=== PATIENT | male | born 1950 | race Caucasian/White ===

== ENCOUNTER 2019-02-11 13:24 | Outpatient (CLI) | payer MEDICARE, OTHER ==
--- NOTE | 2019-02-11 13:42 | RAD ---
EXAM: Chest Two Views 02/11/2019 1:38 PM HISTORY: Right lower lobe lung mass COMPARISON: None. FINDINGS: Heart: Normal in size and contour. Pulmonary vessels: Normal. Costophrenic angles: Clear. Lungs: There is opacity within the right lower lobe. There is a moderate size right-sided pleural eff usion. The left lung is clear. Pneumothorax: None. Osseous structures:Intact. Additional findings: None. IMPRESSION: Moderate right pleural effusion and right basilar opacity. The opacity in the right lung base is susp icious for atelectasis; however, component pneumonia is not excluded. CT evaluation with contrast would be more helpful in evaluating for right lung malignancy.
== END 2019-02-11 13:25 | disposition home or self-care (01) ==
LOC: RAD 13:24
PROVIDERS: ATTEND Thoracic Surgery (Cardiothoracic Vascular Surgery)
DX: R91.8 Other nonspecific abnormal finding of lung field (principal); J90 Pleural effusion, not elsewhere classified
CPT/HCPCS: 71046

== ENCOUNTER 2019-02-12 08:29 | Day surgery (SDC) | payer MEDICARE, OTHER ==
--- NOTE | 2019-02-12 11:27 | CT ---
CT OF THE THORAX WITHOUT IV CONTRAST INDICATION: Pleural effusion COMPARISON: Chest radiograph dated February 11, 2019 FINDINGS: The lack of IV contrast limits evaluation for malignancy. LUNGS: There is air bronchograms seen within portions of collapsed right lower lobe much of which is likely related to subsegmental volume loss; however, component of pneumonia in the right lower lobe is not excluded. Pleural spaces: There is a moderate-sized loculated right pleural effusion with loculated appearing f luid present within the right major fissure. There is hyperdensity seen within the largest collection in the right lower hemithorax possibly related proteinaceous material or small amount of h emorrhage. Lymph nodes: No pathologically enlarged lymph nodes are seen within the mediastinum. Hilar lymphadeno jose angel is difficult to evaluate on a noncontrast exam. Heart and great vessels: There are coronary artery and thoracic aortic calcifications. Upper abdomen: Visualized aspects of the upper abdomen appear within normal limits. Osseous structures: No acute osseous abnormality. IMPRESSION: 1. Moderate size complicated right pleural effusion with loculated fluid extending into the right larissa or fissure. There is also hyperdensity within the largest portion of the collection the right lower hemithorax possibly related to proteinaceous material or small amount of hemorrhage. Recommend correl ation for any recent procedure to the right hemithorax. Recommend correlation for any symptoms and signs of empyema. 2. Small amount of air bronchograms within the right lower lobe is likely related to subsegmental vol ume loss; however, component of pneumonia cannot be excluded.
--- NOTE | 2019-02-12 11:45 | CON ---
DATE OF CONSULTATION: HISTORY OF PRESENT ILLNESS: Efren Henderson is a 68-year-old male. I was consulted for a pleural effusion. He went to [facility] within the last few weeks wanting to quit smoking. A CT of his chest was ordered. A nodule was found. It is unclear to me how big the nodule was. He subsequently was set up for CT-guided biopsy of this nodule. He had a parenchymal hemorrhage and also pneumothorax. He ended up having a large chest tube placed on the right. This has been removed. He followed up with his chest surgeon and was noted to have a pleural effusion yesterday, so I was consulted. Past medical history is remarkable for feeling poorly and going to a doctor who did an EKG, which showed tombstone abnormalities. He was transferred into [facility] in [place] from [place], [place] where eventually underwent cardiac catheterization, which did not identify any significant coronary artery disease. PAST MEDICAL HISTORY: Remarkable for having hernia repair, disk herniation, left wrist fracture repair, tonsillectomy, and anterior cervical diskectomy and fusion at C5-C6 with Dr. Ruiz in 2016. FAMILY HISTORY: Positive for lung cancer. REVIEW OF SYSTEMS: Otherwise negative. PHYSICAL EXAMINATION: VITAL SIGNS: Blood pressure 120/80, pulse 80, respiratory rate is 18. HEENT: Pupils are equal. Sclerae are anicteric. NECK: Supple. No lymphadenopathy. LUNGS: Left lung is clear. Right lung is dull to percussion with decreased breath sounds at the right base. HEART: Regular rhythm. S1 and S2 are normal. ABDOMEN: Soft. EXTREMITIES: Without clubbing, cyanosis, or edema. DIAGNOSTIC STUDIES: Chest x-ray done yesterday shows a right effusion. IMPRESSION: 1. Right effusion, likely old blood. Recommended attempt at thoracentesis. Risk of bleeding, infection, lung collapse, least likely were explained. He agreed to proceed. 2. Lung mass. I do not have the images from [facility], so I cannot make a comment on this, but he will bring me a disk when he sees me next week in followup of the thoracentesis. Job ID: [id number]
--- NOTE | 2019-02-12 12:32 | OP ---
DATE OF PROCEDURE: 02/12/2019 PROCEDURE PERFORMED: Thoracentesis. DESCRIPTION OF PROCEDURE: Right posterior hemithorax was prepped twice with chlorhexidine at 3 different interspaces. 15 mL of 1% lidocaine was used to anesthetize the 3 interspaces. Multiple attempts using 22-gauge needle to localize fluid were unsuccessful. No air was aspirated. I recommended CT of the chest to better define this abnormality and he will follow up with me Friday. There is no clinical indication of pneumothorax. The CT chest fluid loculated right base plan to discuss with surgeon. Once we review the CT of the original nodule, I will make further recommendations. Job ID: [id number]
== END 2019-02-12 11:15 | disposition home or self-care (01) ==
LOC: SDC 08:29 → EDSTATUS 08:31 → SDC 11:15
PROVIDERS: ATTEND Internal Medicine Critical Care Medicine
PROC: 0BJQ3ZZ Inspection of Pleura, Percutaneous Approach (ICD-10-PCS; principal; 2019-02-12)
PROC: BW24ZZZ Computerized Tomography (CT Scan) of Chest and Abdomen (ICD-10-PCS; 2019-02-12)
DX: J90 Pleural effusion, not elsewhere classified (principal); F17.200 Nicotine dependence, unspecified, uncomplicated
CPT/HCPCS: 71250; J1642

== ENCOUNTER 2019-02-16 14:00 | Inpatient (IN) | payer MEDICARE, OTHER ==
[2019-02-16 17:02] LABS: ALT (SGPT) 49 U/L (8-55); AST (SGOT) 32 U/L (5-34); Albumin 3.5 g/dL (3.4-4.8); Alkaline Phosphatase 137 U/L (40-110); Anion Gap 13 mmol/L (10-20); BUN (Urea Nitrogen) 14 mg/dL (8.4-25.7); Bilirubin, Direct 0.2 mg/dL (0.1-0.3); Bilirubin, Total 0.3 mg/dL (0.2-1.2); Calc. Creatinine Clearance 0 mL/min (70-130); Calcium 8.5 mg/dL (7.8-10.44); Carbon Dioxide 28 mmol/L (23-31); Chloride 102 mmol/L (98-107); Estimated GFR-MDRD 85; Glucose 107 mg/dL (80-115); Potassium 4.8 mmol/L (3.5-5.1); Protein, Total 6.1 g/dL (5.8-8.1); Sodium 138 mmol/L (136-145)
[2019-02-16 17:10] LABS: Hemoglobin 11.4 g/dL (14.0-18.0); Mean Corpuscular HGB CONC 31.8 g/dL (32.0-36.0); Mean Platelet Volume 10.8 fL (7.4-10.4); Platelet Count 191 thou/uL (130-400); RBC Distribution Width 17.1 % (11.5-14.5); Red Blood Cell (RBC) Count 4.07 mill/uL (4.70-6.10); White Blood Cell (WBC) Count 2.2 thou/uL (4.8-10.8)
--- NOTE | 2019-02-17 00:05 | HP ---
CHIEF COMPLAINT: Shortness of breath. HISTORY OF PRESENT ILLNESS: The patient is a 68-year-old smoker, who has only very recently quit. He has been smoking for most of his life and has noticed some increasing dyspnea on exertion of late. He decided to accompany his brother when he had an appointment with a health care analyst for similar problems, which led to an initial evaluation. Pulmonary function testing and screening CT scan were arranged. The patient had mild obstructive disease on his PFTs and screening CT scan showed about 1.5 mm spiculated mass fairly deep within the right lower lobe. On January 27, it was percutaneously biopsied, which was complicated by pulmonary hemorrhage and hemothorax. He initially was hypotensive, but responded to fluid administration he was transfused and a chest tube was placed draining relatively thin blood. He had a fairly good clearance of his fusion and after 5 or 6 days, his chest tube was removed but about a week or so later in followup, chest x-ray showed fairly significant reaccumulation of fluid. He was not febrile and had no productive cough. Attempts at thoracentesis were unsuccessful and a CT scan showed findings consistent with multiloculated clotted hemothorax. The lung mass that had been visible on previous CT scan was obscured by the effusion. The patient has not had any recent unusual pattern of headaches, not had any seizures or focal neurologic deficits. He has chronic low back pain and knee pain, but no new aches or pains in his bones or joints. He has not had any recent weight loss. He has not noticed any new lumps or bumps, popping up anywhere, and no new or changing moles. He has not noticed any jaundice or scleral icterus. PAST MEDICAL HISTORY: Significant for some degenerative disk disease in his low back and he has had previous C5-C6 anterior cervical diskectomy and fusion. He has an ill-defined psychiatric disorder for which he takes Zoloft to "take the edge off." This past summer, he was hospitalized at [facility] in [place] with chest pain and EKG changes. He ruled out for myocardial infarction and had no obstructive coronary disease and an LVEF of around 60% on cardiac catheterization. A presumptive diagnosis of viral bronchitis or pneumonitis was entertained when viral studies came back with parainfluenza virus. During that hospitalization, he was noted to have leukopenia with white counts of 2000 or less. There were no particular abnormalities noted on examination of the peripheral smear. The patient tells me that he has a known history of leukopenia going back at least a few years. HOME MEDICATIONS: 1. Simvastatin 10 mg a day. 2. Sertraline 25 mg a day. 3. Celebrex 200 mg a day. 4. Fish oil 1200 mg a day. 5. Multivitamin. He has recently been started on iron. ALLERGIES: HE DENIES ANY MEDICAL ALLERGIES, BUT REPORTS INSOMNIA WITH WELLBUTRIN. SOCIAL HISTORY: He is about half to one pack a day smoker for many years, but has not smoked in about a month. FAMILY HISTORY: Significant for hypertension and cancer in his father, cancer and coronary disease in his mother. REVIEW OF SYSTEMS: As above. He has no current chest pain. PHYSICAL EXAMINATION: VITAL SIGNS: Heart rate is around 100, blood pressure 131/71, height 6 feet tall, weighs 164 pounds, room air O2 saturations are 96%. He has no scleral icterus or xanthelasma. No JVD or carotid bruits. There is no cervical or supraclavicular lymphadenopathy. He has a mild pectus excavatum deformity. He has diminished breath sounds at the right base with dullness to percussion about a third [address] way up. ABDOMEN: Soft and nontender without organomegaly, masses, or bruits. He has palpable radial pulses. He has no bony deformities or tenderness. No clubbing, cyanosis, or edema. NEUROLOGIC: Grossly nonfocal. CT scanning initially had borderline enlargement of what appeared to represent an azygos node and adjacent pretracheal node that were not appreciable on the CT scan that he had that was part of his post hemorrhage evaluation. It is 1.5 cm irregularly contoured mass and what I think probably represents anterior medial segment of the right lower lobe. He perhaps has some peribronchial adenopathy, but no obvious hilar or mediastinal adenopathy on that. He has no liver or adrenal masses. He does have some coronary calcifications that are appreciable on it. Pulmonary function testing showed forced vital capacity 3.83, which was 78% of predicted, improved to 3.90 or 80% of predicted with bronchodilators. FEV1 was 2.59 L or 71% of predicted and improved to 2.69 or 74% of predicted. His DLCO is 81% of predicted. Core biopsy of his lung mass merely showed benign pulmonary parenchyma with hemorrhage. IMPRESSION AND RECOMMENDATIONS: The patient has no clinical or radiographic evidence to suggest metastatic disease other than perhaps some N1 adenopathy given the recurrence of what appears to be clotted hemothorax that is going to make PET scanning somewhat problematic. It is probably more appropriate just simply to take an approach of screening bronchoscopy. I do not think that he needs surgical staging and go straight to thoracotomy to evacuate the clotted hemothorax. I have cautioned him that while it is my practice to do excisional biopsies, confirm malignancy prior to committing to an anatomic resection such as lobectomy that may not be feasible and may be necessary to do lobectomy as the biopsy. If he appears to have adenopathy in the sump of Borrie, he will need bilobectomy. He wishes to proceed. Job ID: [id number]
[2019-02-18] MEDS ORDERED: Fentanyl 100 MCG/2 ML VIAL ONE ×3 (06:32→13:07)
[2019-02-18] MEDS ORDERED: Midazolam HCl 2 mg/2 ml Vial ONE (06:32)
[2019-02-18] MEDS ORDERED: Ropivacaine HCl/PF 750 ML in Premix Bag 1 BAG NERVE BLCK SCH (07:30)
[2019-02-18] MEDS ORDERED: Ropivacaine 0.2% HCl/PF 20 ML ONE (08:01)
[2019-02-18] MEDS ORDERED: Ropivacaine 0.2% 550 ML 550 ML NERVE BLCK SCH (09:28)
[2019-02-18] MEDS ORDERED: Ondansetron HCl/PF 4 MG/2 ML Vial IVP PRN ×2 (09:53→09:54)
[2019-02-18] MEDS ORDERED: Rocuronium Bromide 50 MG/5 ML VIAL ONE (09:54)
[2019-02-18] MEDS ORDERED: PHENYLEPHRINE-NS 100 MCG/ML 10 ML SYRINGE ONE (10:48)
[2019-02-18] MEDS ORDERED: ePHEDrine/0.9% NaCl/PF SYRINGE 50 mg/10 ml ONE (10:48)
[2019-02-18] MEDS ORDERED: Ondansetron PF 4 MG/2 ML Vial ONE (10:48)
[2019-02-18] MEDS ORDERED: Dexamethasone 20 MG/5 ML VIAL ONE (10:48)
[2019-02-18] MEDS ORDERED: Glycopyrrolate 0.2 MG/ML 5 ML SYRINGE ONE (10:48)
[2019-02-18] MEDS ORDERED: PROPOFOL 200 MG/20 ML VIAL ONE (10:48)
[2019-02-18] MEDS ORDERED: Rocuronium Bromide 10 MG/ML (10ML VIAL) ONE (10:48)
[2019-02-18] MEDS ORDERED: Lidocaine 1% PF 5 ML VIAL ONE (10:48)
[2019-02-18] MEDS ORDERED: Ketorolac Tromethamine 30 MG/ML VIAL ONE ×2 (10:48→16:44)
[2019-02-18] MEDS ORDERED: Ondansetron PF 4 MG/2 ML Vial IVP PRN (12:15)
[2019-02-18] MEDS ORDERED: Morphine Sulfate 100 MG in Dextrose 5% in Water 98 ML IV SCH (12:33)
[2019-02-18] MEDS ORDERED: Naloxone HCl 0.4 mg/ml Vial IV PRN (12:33)
[2019-02-18] MEDS ORDERED: Fentanyl 100 MCG/2 ML VIAL SLOW IVP PRN (12:34)
--- NOTE | 2019-02-18 13:08 | RAD ---
Portable frontal chest radiograph: 02/18/2019 COMPARISON: 02/16/2019 HISTORY: Evaluate chest following thoracotomy FINDINGS: There are 2 right-sided chest tubes in place. There is a third postsurgical drainage cathet er curling over the soft tissues within the lateral inferior right hemithorax. Previously noted prominent pleural and parenchymal opacity within the right lung base has essentially resolved followi ng surgery. There is a small pneumothorax in the right lung apex and a possible small pneumothorax in the right cardiophrenic angle. Small volume subcutaneous gas noted within the right chest wall. Le ft lung appears clear. IMPRESSION: Postoperative changes of the right hemithorax with small apical pneumothorax and possible small pneumothorax in the right costophrenic angle. There are 2 right [address] tubes in place and a third drainage catheter which curls over the soft tissues and lateral inferior right hemithorax as ab ove.
[2019-02-18 14:17] LABS: Mean Corpuscular HGB CONC 32.6 g/dL (32.0-36.0); Mean Corpuscular Hemoglobin 28.5 pg (27.0-31.0); Mean Corpuscular Volume 87.4 fL (78.0-98.0); Mean Platelet Volume 10.7 fL (7.4-10.4); Platelet Count 157 thou/uL (130-400); RBC Distribution Width 16.7 % (11.5-14.5); Red Blood Cell (RBC) Count 2.79 mill/uL (4.70-6.10); White Blood Cell (WBC) Count 2.5 thou/uL (4.8-10.8)
[2019-02-18 14:52] LABS: #Lymphocytes 0.3 thou/uL (1.20-3.40); #Neutrophils 2.1 thou/uL (1.40-6.50); %Basophils 1.1 % (0.0-1.0); %Eosinophils 0.4 % (0.0-10.0); %Lymphocytes 12.1 % (21.0-51.0); %Monocytes 1.3 % (0.0-10.0); %Neutrophils 85.2 % (42.0-75.0)
[2019-02-18 15:01] LABS: Hypochromia SLIGHT = 6-15 cells (100X) (0-5/hpf); MDiff Complete? YES; Platelet Morphology Comment Appears Adequate; Polychromasia SLIGHT = 2-3 cells (100X) (0-2/hpf); Tear Drops SLIGHT = 2-5 cells (100X) (0-1/hpf)
[2019-02-18] MEDS: Acetaminophen 1,000 MG in Premix Bag 1 BAG IVPB SCH ×2 (18:22→20:53)
[2019-02-18] MEDS: Ketorolac Tromethamine 30 MG/ML VIAL IVP SCH (18:23)
[2019-02-18] MEDS: Sodium Chloride 0.9% 1,000 ML IV SCH ×2 (18:41→20:53)
--- NOTE | 2019-02-18 22:16 | OP ---
DATE OF PROCEDURE: 02/18/2019 PROCEDURES PERFORMED: Fiberoptic bronchoscopy, muscle sparing right thoracotomy , evacuation of clotted hemothorax, excisional biopsy of right lower lobe mass, right lower lobectomy, mediastinal lymph node dissection, On-Q PainBuster subpleural catheter placement for a continuous intercostal nerve block x2. ANESTHESIA: General endotracheal anesthesia. INDICATIONS: The patient is a 68-year-old smoker, found to have about a 1.5 cm mass fairly deep within the substance of his right lower lobe on a screening CT scan. The patient had no clinical or radiographic evidence to suggest metastatic disease and had adequate pulmonary reserve. Percutaneous biopsy was complicated by hemothorax that was drained with a chest tube, but his effusion has recurred and he is significantly symptomatic. FINDINGS: About 2300 mL of reddish-brown fluid and about 500 mL of rind and clotted blood in the chest cavity with scattered dense adhesions. There was about a 1.5 or 2 cm firm mass anterior medially in the right lower lobe near the hilum, which by frozen section examination was consistent with a non-small cell carcinoma. Two subcentimeter lymph nodes that were white and very firm were harvested from the subcarinal position. During lymph node dissection, the hilar and peribronchial lymph nodes including the nodes at the sump of Borrie immediately adjacent to the tumor were soft and anthracotic appearing. No endobronchial abnormalities were seen. NARRATIVE REPORT: After informed consent was obtained, the patient was taken to the operating room, placed in supine position on the operating table. After the induction of general anesthesia, the fiberoptic bronchoscope was lubricated and inserted through a swivel device on the endotracheal tube. The judd was sharp. The right mainstem bronchus was intubated and then the right upper lobe was intubated. It was examined to the subsegmental level in each of the 3 segments. No endobronchial abnormalities were appreciated. The scope was then withdrawn back into the mainstem bronchus and advanced into the bronchus intermedius and from there into the middle lobe. The medial and lateral segments were examined to the subsegmental level and then the right lower lobe was examined getting to the subsegmental and then even beyond that in the medial basilar segment. No endobronchial abnormalities were appreciated. The scope was then withdrawn back to the level of the trachea and advanced into the left mainstem bronchus. The upper lobe proper lingula and lower lobe were each examined to at least the segmental bronchial level. The scope was then withdrawn and a bronchial evelin was positioned. The patient was turned into the left lateral decubitus position and his right chest was prepped and draped in sterile fashion. Slightly curvilinear incision paralleling the ribs was made just below the tip of the scapula on the lateral aspect of the chest. The electrocautery was used to carry that dissection through the subcutaneous tissue and to mobilize the latissimus and the serratus. The fifth intercostal space was entered. Brown turbid fluid was evacuated from the chest locally. It was found to be loculated as clotted hemothorax was broken up and scattered, but very dense adhesions of the lung to the chest wall and mediastinum and slightly less dense adhesions to the diaphragm were encountered. Once the fluid clot and rind had been adequately evacuated, the lung was mobilized. Completing lysis of adhesions, the lung was examined. There was no suspicious adenopathy appreciated. A rubbery mass could be felt within the anterior medial aspect of the right lower lobe near the hilum corresponding to the mass seen on the screening CT scan. The inferior pulmonary ligament was lysed in inferior pulmonary ligaments. The ligament lymph nodes were harvested and sent as specimen. Relatively large , but rubbery and benign-appearing lymph nodes were encountered adjacent to the esophagus and these were ultimately sent as a separate specimen as well. The fissures were fairly well developed. The fissure between the middle and lower lobe posteriorly was explored to identify the pulmonary artery at that point. A combination of sharp and blunt dissection was used to develop the plane of Leriche to carry the dissection inferior to the middle lobe and its venous drainage. An endoscopic MARIA G stapling device was used to complete that fissure to facilitate a more thorough examination of the mass in the lower lobe. The venous drainage of the 3 lobes was identified and the hilar reflections of the pleura were lysed with the electrocautery and blunt dissection. It proved feasible. Once the medial aspects of the right lower lobe were freed from their adhesions to the mediastinum, the position of stapler to excise that mass without having to do a formal segmentectomy or to jeopardize any of the pulmonary arterial branches or the inferior vein. Once that mass had been excised, it was sent to pathology. While it was being examined, the arterial structures in the fissure between the upper and lower lobes posteriorly were identified. Lymph nodes that were encountered in the peribronchial position in the development of these fissures were excised and sent for pathologic examination as separate specimens. When the frozen section examination diagnosis of non- small cell carcinoma was returned. Development of the fissures was completed. The middle lobe was still adherent to the upper lobe. The lymph nodes at the sump of Borrie appeared to be soft and anthracotic and as much as was feasible. These nodes were dissected out to be taken with the specimen. A vascular TA stapling device was used to doubly ligate the inferior pulmonary vein and then the vascular stapler and silk suture were used to ligate the interlobar pulmonary artery just beyond the takeoff branches to the middle lobe. A TA 30 stapler was positioned just beyond the origin of the middle lobe bronchus across the lower lobe bronchus and clamped. A test inflation of the right lung showed no restriction of ventilation into the upper and middle lobes. Stapling device was fired and the specimen was amputated and removed from the field. The chest was irrigated and then a 30 cm water Valsalva maneuver was performed with the bronchial stump under irrigation and no evidence of air leak from the stump was identified. The azygos vein was then mobilized. Lymph nodes along the upper lobe bronchus and segmental branches to the upper lobe immediately deep to that were bluntly dissected free and sent as a separate specimen. The pre and right peritracheal spaces were developed by blunt dissection. No gross adenopathy was palpable, but upon visual inspection, some soft anthracotic nodes were identified in the distal right peritracheal and pretracheal positions. These were harvested. The inferior medial aspect of the bronchus intermedius and right mainstem bronchus were then followed into the subcarinal space and a fairly large rubbery lymph node was encountered. Blunt dissection was used to free that, but in the course of mobilizing that 2 small subcentimeter lymph nodes were bluntly dissected free as well and were recovered free in the chest cavity. These two small and one large lymph nodes were sent as subcarinal nodes. The chest was inspected. 36-[place] chest tubes were introduced into the chest through separate incisions positioning them at the apex anteriorly and posteriorly. On-Q system was brought to the field. Two catheters were introduced into the chest and then tunneled deep to the pleura posterior medially, one passing superiorly and one inferiorly from the intercostal incision. 5 mL of 0.5% ropivacaine were bolused into each catheter. These catheters were secured to the skin with suture. The ribs were reapproximated with #1 Vicryl [id number] pericostal sutures. The muscle layers were tacked back in their anatomic position with running #1 Vicryl. A 19-[place] bulb suction drain was placed just superficial to the latissimus in the subcutaneous space and the subcutaneous tissue was reapproximated with running 2-0 Vicryl. The skin was closed with a 3-0 Vicryl subcuticular suture. The wounds were dressed. The RUSH drain was connected to a bulb and the chest tubes to close suction drainage. The On-Q ropivacaine reservoir was attached to the catheters. The patient was awakened and extubated in the operating room and taken to the recovery area in stable condition. Job ID: [id number] MTDD
[2019-02-19] MEDS: Ketorolac Tromethamine 30 MG/ML VIAL IVP SCH ×5 (00:53→23:59)
[2019-02-19 04:49] LABS: #Lymphocytes 0.9 thou/uL (1.20-3.40); #Monocytes 0.1 thou/uL (0.11-0.59); #Neutrophils 2.2 thou/uL (1.40-6.50); %Basophils 0.2 % (0.0-1.0); %Eosinophils 0.1 % (0.0-10.0); %Lymphocytes 28.1 % (21.0-51.0); %Neutrophils 69.6 % (42.0-75.0); Hemoglobin 6.5 g/dL (14.0-18.0); Mean Corpuscular HGB CONC 31.6 g/dL (32.0-36.0); Mean Corpuscular Hemoglobin 28.2 pg (27.0-31.0); Mean Corpuscular Volume 89.1 fL (78.0-98.0); Mean Platelet Volume 10.8 fL (7.4-10.4); Platelet Count 148 thou/uL (130-400); RBC Distribution Width 16.4 % (11.5-14.5); Red Blood Cell (RBC) Count 2.29 mill/uL (4.70-6.10); White Blood Cell (WBC) Count 3.2 thou/uL (4.8-10.8)
[2019-02-19 05:00] LABS: Anion Gap 10 mmol/L (10-20); BUN (Urea Nitrogen) 13 mg/dL (8.4-25.7); Calc. Creatinine Clearance 82 mL/min (70-130); Calcium 7.3 mg/dL (7.8-10.44); Carbon Dioxide 26 mmol/L (23-31); Chloride 105 mmol/L (98-107); Estimated GFR-MDRD Greater than 90; Glucose 133 mg/dL (80-115); Potassium 4.6 mmol/L (3.5-5.1); Sodium 136 mmol/L (136-145)
[2019-02-19] MEDS: Acetaminophen 1,000 MG in Premix Bag 1 BAG IVPB SCH ×2 (05:04→08:05)
[2019-02-19] MEDS: Sodium Chloride 0.9% 1,000 ML IV SCH ×2 (08:08→09:36)
--- NOTE | 2019-02-19 08:51 | RAD ---
CHEST 1 VIEW: INDICATION: Status post thoracotomy. COMPARISON: Prior exam dated 02/18/2019. IMPRESSION: Right-sided thoracostomy tubes are unchanged. There is slight increased right-sided pleural effusion . Right apical pneumothorax is unchanged. There is worsening opacity within the right lower lobe, s ome of which could be related to some atelectasis, adjacent pleural effusion. The left lung is clear . IMPRESSION: 1. Worsening pleural parenchymal opacities of the right lower lobe suspicious for new right pleural effusion. There is increased opacity in the right lower lobe, some of which could be related to subs egmental volume loss. Evolving pneumonia is not excluded. Continued followup is recommended. 2. Right-sided thoracostomy tubes are stable. POS: OFF
[2019-02-19] MEDS: Multivit, Therapeutic 1 TAB PO SCH (09:35)
[2019-02-19] MEDS: Ferrous Sulfate 325 MG TAB PO SCH ×2 (09:35→20:19)
[2019-02-19] MEDS: Simvastatin 5 MG TAB PO SCH (09:36)
[2019-02-19] MEDS: Melatonin 3 MG TAB PO SCH (20:19)
[2019-02-19] MEDS: Temazepam 15 MG CAP PO PRN (20:22)
[2019-02-20] MEDS: Sodium Chloride 0.9% 1,000 ML IV SCH (01:04)
[2019-02-20 05:01] LABS: Anion Gap 11 mmol/L (10-20); BUN (Urea Nitrogen) 11 mg/dL (8.4-25.7); Calc. Creatinine Clearance 96 mL/min (70-130); Calcium 7.8 mg/dL (7.8-10.44); Carbon Dioxide 25 mmol/L (23-31); Chloride 105 mmol/L (98-107); Estimated GFR-MDRD Greater than 90; Glucose 92 mg/dL (80-115); Potassium 4.6 mmol/L (3.5-5.1); Sodium 136 mmol/L (136-145)
[2019-02-20] MEDS: Ketorolac Tromethamine 30 MG/ML VIAL IVP SCH ×3 (05:56→18:18)
--- NOTE | 2019-02-20 09:06 | RAD ---
EXAM: Portable chest PROVIDED CLINICAL HISTORY: Respiratory insufficiency COMPARISON: 02/19/2019 FINDINGS: Significant interval change with respect to the prior examination is not apparent. IMPRESSION: As above.
[2019-02-20] MEDS: Simvastatin 5 MG TAB PO SCH (09:16)
[2019-02-20] MEDS: Fish Oil 1,000 MG CAP PO SCH (09:17)
[2019-02-20] MEDS: Multivit, Therapeutic 1 TAB PO SCH (09:17)
[2019-02-20] MEDS: Ferrous Sulfate 325 MG TAB PO SCH ×2 (09:19→21:44)
[2019-02-20] MEDS ORDERED: Amiodarone 150 MG, Admixture Fee 1 EACH in Dextrose 5% in Water 100 ML IVPB SCH (15:15)
[2019-02-20] MEDS: Amiodarone 450 MG, Admixture Fee 1 EACH in Dextrose 5% in Water 250 ML IVPB SCH (15:49)
[2019-02-20 16:18] LABS: ALT (SGPT) 29 U/L (8-55); AST (SGOT) 24 U/L (5-34); Albumin 2.7 g/dL (3.4-4.8); Alkaline Phosphatase 112 U/L (40-110); Bilirubin, Direct 0.2 mg/dL (0.1-0.3); Bilirubin, Total 0.3 mg/dL (0.2-1.2); Magnesium 1.8 mg/dL (1.6-2.6); Protein, Total 5.4 g/dL (5.8-8.1)
--- NOTE | 2019-02-20 17:31 | PRG ---
DATE OF SERVICE: 02/20/2019 SUBJECTIVE: He is doing well. He had no complaints. He started noticing palpitations this morning. This afternoon, he went into atrial fibrillation with a rate fluctuating between 150 and 170. OBJECTIVE: LUNGS: Remarkable for equal breath sounds. He is not wheezing. HEART: Irregular rhythm. ABDOMEN: Soft and nontender. EXTREMITIES: Without edema or asymmetry. LABORATORY DATA: White count 3.2, hemoglobin yesterday was 6.5. No CBC was ordered today. He was transfused yesterday. ASSESSMENT AND PLAN: He has been started on amiodarone today. Overall, he is surprisingly asymptomatic with rapid heart rate. We will continue to follow. His pathology is still pending. Job ID: [id number]
[2019-02-20] MEDS: Temazepam 15 MG CAP PO PRN (21:44)
[2019-02-20] MEDS: Melatonin 3 MG TAB PO SCH (21:44)
[2019-02-21] MEDS: Ketorolac Tromethamine 30 MG/ML VIAL IVP SCH ×2 (00:22→05:43)
[2019-02-21 04:47] LABS: Anion Gap 9 mmol/L (10-20); BUN (Urea Nitrogen) 12 mg/dL (8.4-25.7); Calc. Creatinine Clearance 89 mL/min (70-130); Calcium 7.7 mg/dL (7.8-10.44); Carbon Dioxide 27 mmol/L (23-31); Chloride 103 mmol/L (98-107); Estimated GFR-MDRD Greater than 90; Glucose 110 mg/dL (80-115); Potassium 4.4 mmol/L (3.5-5.1); Sodium 135 mmol/L (136-145)
[2019-02-21 05:11] LABS: Band 3 % (5-11); Hemoglobin 7.8 g/dL (14.0-18.0); Hypochromia SLIGHT = 6-15 cells (100X) (0-5/hpf); Lymphocytes 33 % (21-51); MDiff Complete? YES; Mean Corpuscular HGB CONC 31.8 g/dL (32.0-36.0); Mean Corpuscular Hemoglobin 27.7 pg (27.0-31.0); Mean Corpuscular Volume 87.2 fL (78.0-98.0); Mean Platelet Volume 10.4 fL (7.4-10.4); Monocytes 5 % (0-10); Neutrophil 59 % (42-75); Platelet Count 139 thou/uL (130-400); Platelet Morphology Comment Appears Adequate; RBC Distribution Width 15.8 % (11.5-14.5); Red Blood Cell (RBC) Count 2.81 mill/uL (4.70-6.10); White Blood Cell (WBC) Count 3.1 thou/uL (4.8-10.8)
[2019-02-21] MEDS: Ferrous Sulfate 325 MG TAB PO SCH ×2 (08:36→20:13)
[2019-02-21] MEDS: Fish Oil 1,000 MG CAP PO SCH (08:36)
[2019-02-21] MEDS: Multivit, Therapeutic 1 TAB PO SCH (08:36)
[2019-02-21] MEDS: Simvastatin 5 MG TAB PO SCH (08:36)
[2019-02-21] MEDS ORDERED: Milk Of Magnesia 30 ML UDCUP PO PRN (08:47)
[2019-02-21] MEDS ORDERED: Bisacodyl 10 MG SUPP PR PRN (08:47)
--- NOTE | 2019-02-21 08:58 | RAD ---
Portable frontal chest radiograph: 02/21/2019 COMPARISON: 02/20/2019 HISTORY: Evaluate chest following thoracotomy FINDINGS: There are 2 stable right-sided chest tubes in place. Stable small apical pneumothorax on th e right. Nonspecific focal pleural and parenchymal opacity persists within the right costophrenic angle and there is stable increased density in the right hilar region. Left lung appears clear. There is subcutaneous emphysema at the base of the neck, right. IMPRESSION: 2 right-sided chest tubes with stable right apical pneumothorax. Persistent nonspecific i ncreased density in right hilar region and right lung base.
[2019-02-21] MEDS: Bisacodyl 5 MG TAB PO PRN (12:00)
[2019-02-21] MEDS: Sodium Chloride 0.9% 1,000 ML IV SCH (12:04)
[2019-02-21] MEDS: Amiodarone 450 MG, Admixture Fee 1 EACH in Dextrose 5% in Water 250 ML IVPB SCH (16:14)
[2019-02-21] MEDS: Melatonin 3 MG TAB PO SCH (20:13)
[2019-02-21] MEDS: Temazepam 15 MG CAP PO PRN (20:13)
[2019-02-21] MEDS: Amiodarone 200 MG TAB PO SCH (20:13)
--- NOTE | 2019-02-21 20:21 | PRG ---
DATE OF SERVICE: 02/21/2019 SUBJECTIVE: Efren Henderson says he is feeling better. OBJECTIVE: VITAL SIGNS: His heart rate is down in the 80s. He is afebrile. Respiratory rate is in the teens, oximetry is 98% on 2 L, blood pressure 125/60. When I saw him this morning, he still was on an amiodarone drip. CHEST: He has a tiny apical pneumothorax on the chest radiograph. LUNGS: Clear. HEART: Regular rhythm. ABDOMEN: Soft. IMPRESSION: 1. Status post lobectomy. 2. Status post evacuation of clot secondary to pleural hemorrhage associated with a CT-guided biopsy. 3. Pathology is still pending. Job ID: [id number]
[2019-02-22 05:16] LABS: Band 3 % (5-11); Hemoglobin 7.5 g/dL (14.0-18.0); Lymphocytes 38 % (21-51); MDiff Complete? YES; Mean Corpuscular HGB CONC 32.4 g/dL (32.0-36.0); Mean Corpuscular Hemoglobin 28.3 pg (27.0-31.0); Mean Corpuscular Volume 87.1 fL (78.0-98.0); Mean Platelet Volume 10.2 fL (7.4-10.4); Monocytes 2 % (0-10); Neutrophil 57 % (42-75); Platelet Count 137 thou/uL (130-400); Red Blood Cell (RBC) Count 2.66 mill/uL (4.70-6.10); White Blood Cell (WBC) Count 2.5 thou/uL (4.8-10.8)
[2019-02-22] MEDS ORDERED: HYDROmorphone 2 MG TAB PO PRN (08:53)
--- NOTE | 2019-02-22 10:00 | RAD ---
PORTABLE CHEST: Date: 02/22/19 HISTORY: Post lobectomy. COMPARISON: 02/21/19. FINDINGS: Heart size within normal limits. Two right chest tubes remain in place. Small apical pneumothorax is still present. Pleural changes in the right base are similar to the prior study. IMPRESSION: Stable overall exam. POS: [facility]
[2019-02-22] MEDS: Amiodarone 200 MG TAB PO SCH ×2 (10:27→20:41)
[2019-02-22] MEDS: Multivit, Therapeutic 1 TAB PO SCH (10:28)
[2019-02-22] MEDS: Fish Oil 1,000 MG CAP PO SCH (10:28)
[2019-02-22] MEDS: Ferrous Sulfate 325 MG TAB PO SCH ×2 (10:28→20:41)
[2019-02-22] MEDS: Simvastatin 5 MG TAB PO SCH (10:29)
--- NOTE | 2019-02-22 10:59 | PRG ---
DATE OF SERVICE: 02/22/2019 SUBJECTIVE: The patient is doing reasonably well. He had no acute complaints. OBJECTIVE: VITAL SIGNS: His temperature is 98.5, pulse 89, respirations 18, O2 saturation 99% on 1.5 L, blood pressure 107/59. HEENT: Unremarkable. NECK: No adenopathy or JVD. LUNGS: He has a right-sided chest tube in place. Breath sounds are clear bilaterally. CARDIAC: S1 and S2. Regular. ABDOMEN: Soft. EXTREMITIES: No edema. LABORATORY DATA: White blood cell count 2.5, hematocrit 23.2, and platelet count 137. Sodium 135, potassium 4.4, BUN 12, creatinine 0.8, glucose 110. ASSESSMENT: 1. Status post thoracotomy with lobectomy. 2. Status post evacuation of clot secondary to pleural hemorrhage associated with CT guided biopsy. PLAN: Await pathology results. We will follow. Job ID: [id number]
[2019-02-22] MEDS: Acetaminophen 1,000 MG in Premix Bag 1 BAG IVPB SCH ×3 (11:05→22:46)
[2019-02-22] MEDS: Bisacodyl 5 MG TAB PO PRN (11:05)
--- NOTE | 2019-02-22 11:12 | PRG ---
DATE OF SERVICE: 02/19/2019 SUBJECTIVE: Efren Henderson is a 68-year-old who I am recently acquainted with. He went to [place] and [facility], wanting to quit smoking. A CT was done of his chest, which showed 1.5 cm nodule. This is just inferior to his right hilum. An attempt was made to biopsy this lesion. This led to a hemothorax as well as a pulmonary hemorrhage. He had a chest tube in for quite some time. Discharged to home, followed up with his surgeon last week, who noticed decreased breath sounds, and ordered a chest radiograph which showed a right pleural effusion. I attempted a thoracentesis following day and was unable to get fluid. The CT showed loculated fluid, which was felt to be most likely blood. He subsequently scheduled for treatment of this as well as resection of the nodule, which had a malignant appearance in my opinion. He successfully undergone the surgery and is now in the Critical Care Unit. He is not complaining of a lot of pain. OBJECTIVE: VITAL SIGNS: 97% on room air, blood pressure , heart rate 88. HEAD AND NECK: Unremarkable. LUNGS: Clear. HEART: Regular rhythm. ABDOMEN: Soft. LABORATORY DATA: White count 3.2, hemoglobin 6.5. He received 2 units of blood today. Platelets 148,000. Electrolytes are normal. 370 mL out, chest tube overnight. IMPRESSION: 1. Status post lobectomy. 2. Status post evacuation of clotted hemothorax, status post lymph node dissection, awaiting final pathology. 3. Mild obstructive lung disease by past pulmonary function test that he reported to me. PLAN: Continue . Job ID: [id number]
[2019-02-22 11:13] LABS: Bilirubin Negative (Negative); Blood, Urine Negative (Negative); Clarity Clear (Clear); Glucose, Urine (Dipstick) Normal (Negative); Leukocyte Negative Leu/uL (Negative); Nitrite Negative (Negative); Protein, Urine (Dipstick) 20 mg/dL (Neg-Trace); RBC/HPF 0-3 HPF (0-3); Squamous Epithelial 0-3 HPF (0-3); Urobilinogen Normal mg/dL (Less than 2); WBC/HPF 0-3 HPF (0-3)
[2019-02-22 11:16] LABS: Bacteria/HPF 1+ HPF (None Seen); Urine Culture Reflex Yes Yes
--- NOTE | 2019-02-22 15:44 | PQF ---
LIZA GORMAN ALLISONMARRY [id number] [facility] [id number] CLINICAL DOCUMENTATION IMPROVEMENT CLARIFICATION FORM: ICD-10 Updated PLEASE DO AN ADDENDUM TO THE PROGRESS NOTE WITH ANY DOCUMENTATION UPDATES OR ADDITIONS AND CARRY THROUGH TO DC SUMMARY. THANK YOU. DATE: 02/22/2019 ATTN: Naye WAGONER Please exercise your independent, professional judgment in responding to the clarification form. Clinical indicators are provided on the bottom of this form for your review. Please check appropriate box(s): [ ] Acute blood loss anemia [ x] Post-op anemia related to acute blood loss [ x] Other diagnosis pre-op blood loss anemia [ ] Unable to determine In addition, please specify: Present on Admission (POA): [ x] Yes [ ] No [ ] Unable to determine For continuity of documentation, please document condition throughout progress notes and discharge summary. Thank You. CLINICAL INDICATORS - SIGNS / SYMPTOMS / LABS / RESULTS AND LOCATION IN EMR 02/19/19 PN (ALLISON) ANEMIC- BLOOD LOSS ANEMIA- WILL TRANSFUSE You even point out my documentation and I still get this form. Why do I bother? 02/19 HEMOGLOBIN 6.5 02/21 HEMOGLOBIN 7.8 02/22 HEMOGLOBIN 7.5 RISK: RT THORACOTOMY, EXCISIONAL BIOPSY RT LOWER LOBE MASS, RT LOBECTOMY, MEDIASTINAL LYMPH NODE DISSECTION, EBL 500CC (ALLISON/ 02/18) TREATMENT: TRANSFUSION X 2 UNITS LEUK-REDUCED RBC 02/19 THANK YOU! HANNY (This form is maintained as a part of the permanent medical record) 2015 [employer]. All Rights Reserved [facility]
[2019-02-22] MEDS: HYDROmorphone 2 MG TAB PO PRN (19:22)
[2019-02-22] MEDS: Melatonin 3 MG TAB PO SCH (20:41)
[2019-02-22] MEDS: Temazepam 15 MG CAP PO PRN (20:41)
[2019-02-23] MEDS: Acetaminophen 1,000 MG in Premix Bag 1 BAG IVPB SCH (05:27)
[2019-02-23 07:03] LABS: Anisocytosis SLIGHT = 6-15 cells (100X) (0-5/hpf); Band 8 % (5-11); Hemoglobin 8.1 g/dL (14.0-18.0); Lymphocytes 24 % (21-51); MDiff Complete? YES; Mean Corpuscular HGB CONC 31.6 g/dL (32.0-36.0); Mean Corpuscular Hemoglobin 27.4 pg (27.0-31.0); Mean Corpuscular Volume 86.8 fL (78.0-98.0); Monocytes 6 % (0-10); Neutrophil 62 % (42-75); Platelet Count 161 thou/uL (130-400); RBC Distribution Width 15.8 % (11.5-14.5); Red Blood Cell (RBC) Count 2.96 mill/uL (4.70-6.10); White Blood Cell (WBC) Count 2.8 thou/uL (4.8-10.8)
--- NOTE | 2019-02-23 07:37 | RAD ---
Chest AP view INDICATION: History of lobectomy COMPARISON: Prior exam dated February 22, 2019 FINDINGS: Lungs: Right basilar opacity persists. Cardiac silhouette:The cardiomediastinal silhouette appears within normal limits. Pulmonary vasculature:Normal Pleural spaces:Small right apical pneumothorax and right-sided thoracostomy tubes are unchanged. Smal l right pleural effusion persists. Upper abdomen:No abnormality seen. Osseous structures: No acute osseous abnormality. Additional findings:None. IMPRESSION: Stable exam
[2019-02-23] MEDS: Fish Oil 1,000 MG CAP PO SCH (08:50)
[2019-02-23] MEDS: Amiodarone 200 MG TAB PO SCH ×2 (08:50→21:10)
[2019-02-23] MEDS: Ferrous Sulfate 325 MG TAB PO SCH ×2 (08:50→21:10)
[2019-02-23] MEDS: Multivit, Therapeutic 1 TAB PO SCH (08:51)
[2019-02-23] MEDS: Simvastatin 5 MG TAB PO SCH (08:53)
--- NOTE | 2019-02-23 09:18 | PRG ---
DATE OF SERVICE: 02/23/2019 SUBJECTIVE: Mr. Henderson remains on telemetry floor with a chest tube in place. Suction was restarted yesterday. He has no new complaints. His pathology results are still pending. OBJECTIVE: VITAL SIGNS: His temperature is 98.7, pulse 91, respirations 18, O2 saturation 94% on room air, and blood pressure 142/88. HEENT: Unremarkable. NECK: No adenopathy or JVD. LUNGS: He has a chest tube in place on the right. Clear breath sounds bilaterally. CARDIAC: S1 and S2. Regular. ABDOMEN: Soft. EXTREMITIES: No edema. LABORATORY DATA: White blood cell count 2.8, hematocrit 25.7, and platelet count 161. ASSESSMENT: 1. Status post thoracotomy for evacuation of clot from pleural hemorrhage. 2. Status post lobectomy. 3. Await pathology results. Job ID: [id number]
[2019-02-23] MEDS: HYDROmorphone 2 MG TAB PO PRN ×2 (10:39→18:28)
[2019-02-23] MEDS: Bisacodyl 5 MG TAB PO PRN (10:39)
--- NOTE | 2019-02-23 17:37 | EKG ---
Test Reason : Blood Pressure : / mmHG Vent. Rate : 157 BPM Atrial Rate : 170 BPM P-R Int : 000 ms QRS Dur : 118 ms QT Int : 328 ms P-R-T Axes : 000 -78 036 degrees QTc Int : 530 ms Atrial fibrillation with rapid ventricular response with premature ventricular or aberrantly conducte d complexes Left axis deviation Right bundle branch block Inferior infarct , age undetermined Abnormal ECG When compared with ECG of 16-FEB-2019 15:39, Significant changes have occurred Confirmed by NITHYA ALLEN (2) on 02/23/2019 5:36:27 PM Referred By: ALLISON Confirmed By:NITHYA ALLEN
[2019-02-23] MEDS: Melatonin 3 MG TAB PO SCH (21:10)
[2019-02-23] MEDS: Temazepam 15 MG CAP PO PRN (21:13)
[2019-02-23] MEDS: Acetaminophen 325 MG TAB PO PRN (21:41)
[2019-02-24] MEDS: HYDROmorphone 2 MG TAB PO PRN ×2 (00:01→07:13)
[2019-02-24 05:10] LABS: Band 2 % (5-11); Hemoglobin 7.7 g/dL (14.0-18.0); Large Platelets SLIGHT; Lymphocytes 25 % (21-51); MDiff Complete? YES; Mean Corpuscular HGB CONC 31.2 g/dL (32.0-36.0); Mean Corpuscular Hemoglobin 26.9 pg (27.0-31.0); Mean Corpuscular Volume 86.2 fL (78.0-98.0); Mean Platelet Volume 10.2 fL (7.4-10.4); Monocytes 1 % (0-10); Neutrophil 72 % (42-75); Platelet Count 160 thou/uL (130-400); Platelet Morphology Comment Appears Adequate; RBC Distribution Width 16.1 % (11.5-14.5); Red Blood Cell (RBC) Count 2.86 mill/uL (4.70-6.10); Target Cells SLIGHT = 2-5 cells (100X) (0-1/hpf); White Blood Cell (WBC) Count 3.1 thou/uL (4.8-10.8)
--- NOTE | 2019-02-24 07:53 | RAD ---
EXAM: Single view of the chest HISTORY: Right lobectomy COMPARISON: 02/23/2019 FINDINGS: Single view of the chest shows a normal sized cardiomediastinal silhouette. Postsurgical ch anges are seen in the right chest. 2 right chest tubes remain. A stable right apical pneumothorax is seen. There is a small right pleural effusion with adjacent atelectasis versus infiltrate. Post whitmore rgical changes are seen in the cervical spine. IMPRESSION: Stable exam.
--- NOTE | 2019-02-24 09:57 | PRG ---
DATE OF SERVICE: 02/24/2019 SUBJECTIVE: The patient is doing better. He had a urine culture that grew out Klebsiella from 2 days ago. He is actually asymptomatic from my standpoint. He is having fevers at night. He is coughing up purulent sputum. OBJECTIVE: VITAL SIGNS: His temperature is 99.7, pulse 92, respirations 18, O2 saturation 96% on room air, blood pressure 120/62. HEENT: Unremarkable. NECK: No adenopathy or JVD. CHEST: Clear anteriorly. CARDIAC: S1, S2. Regular. ABDOMEN: Soft. EXTREMITIES: No edema. LABORATORY DATA: White blood cell count 3.1, hematocrit 24.7, and platelet count 116. Sodium 135, potassium 4.4, chloride 103, CO2 of 27, BUN 12, creatinine 0.9, glucose 110. Culture results were reviewed. Urinalysis did not show any significant white cells, but did show 1+ bacteria. ASSESSMENT: 1. Bronchitis with purulent sputum. 2. Urine results likely reflect contamination. 3. Fever. 4. Status post thoracotomy for evacuation of hematoma and resection of a mass. PLAN: 1. Initiate Levaquin for bronchitis. 2. Repeat urine culture. 3. Await pathology results. Job ID: [id number]
[2019-02-24] MEDS: Simvastatin 5 MG TAB PO SCH (10:07)
[2019-02-24] MEDS: Fish Oil 1,000 MG CAP PO SCH (10:08)
[2019-02-24] MEDS: Ferrous Sulfate 325 MG TAB PO SCH ×2 (10:08→20:15)
[2019-02-24] MEDS: Multivit, Therapeutic 1 TAB PO SCH (10:08)
[2019-02-24] MEDS: Amiodarone 200 MG TAB PO SCH ×2 (10:08→20:15)
[2019-02-24] MEDS: Baclofen 10 MG TAB PO PRN (12:29)
[2019-02-24] MEDS ORDERED: Sodium Chloride 0.9% 10 ML ONE (15:54)
[2019-02-24] MEDS: Acetaminophen 325 MG TAB PO PRN ×2 (16:09→22:12)
[2019-02-24] MEDS: Melatonin 3 MG TAB PO SCH (20:15)
[2019-02-24] MEDS: Temazepam 15 MG CAP PO PRN (20:15)
[2019-02-25 05:30] LABS: Band 9 % (5-11); Hemoglobin 7.6 g/dL (14.0-18.0); Lymphocytes 20 % (21-51); MDiff Complete? YES; Mean Corpuscular HGB CONC 31.1 g/dL (32.0-36.0); Mean Corpuscular Hemoglobin 26.7 pg (27.0-31.0); Mean Corpuscular Volume 85.8 fL (78.0-98.0); Mean Platelet Volume 10.5 fL (7.4-10.4); Neutrophil 71 % (42-75); Platelet Count 176 thou/uL (130-400); RBC Distribution Width 16.2 % (11.5-14.5); Red Blood Cell (RBC) Count 2.85 mill/uL (4.70-6.10)
[2019-02-25] MEDS: Acetaminophen 325 MG TAB PO PRN ×3 (05:54→20:26)
--- NOTE | 2019-02-25 08:29 | RAD ---
Portable chest: HISTORY: Lobectomy. COMPARISON: 02/24/2019. FINDINGS:Right-sided chest tubes unchanged. Opacification the right lung base again noted consistent with effusion and atelectasis. Left lung remains clear. IMPRESSION:Increasing opacification in the right lung base.
[2019-02-25] MEDS: Ferrous Sulfate 325 MG TAB PO SCH ×2 (08:30→20:25)
[2019-02-25] MEDS: Simvastatin 5 MG TAB PO SCH (08:30)
[2019-02-25] MEDS: Amiodarone 200 MG TAB PO SCH ×3 (08:30→20:25)
[2019-02-25] MEDS: Fish Oil 1,000 MG CAP PO SCH (08:31)
[2019-02-25] MEDS: Multivit, Therapeutic 1 TAB PO SCH (08:31)
[2019-02-25] MEDS: Bisacodyl 5 MG TAB PO PRN (12:44)
[2019-02-25] MEDS: Baclofen 10 MG TAB PO PRN (12:46)
--- NOTE | 2019-02-25 16:11 | PRG ---
DATE OF SERVICE: 02/25/2019 SUBJECTIVE: Efren Henderson still has chest tube in place. His right lower lobe lesion was interpreted, it is being poorly differentiated carcinoma with neuroendocrine features. Hilar nodes were negative for malignancy. Inferior pole pulmonary ligament node was negative for malignancy. The peribronchial lymph node was negative for malignancy. R4 nodes 1/6 positive for metastatic carcinoma. R7 nodes 5/5 positive for metastatic carcinoma. R10 nodes were negative. This was discussed with him by Dr. John and by me as well. He wants an opinion at [facility], so it would be reasonable to send slides within there. OBJECTIVE: LUNGS: Clear. HEART: Regular rhythm. ABDOMEN: Soft. IMPRESSION: 1. Mild chronic obstructive pulmonary disease. 2. Status post lobectomy for an undifferentiated tumor of neuroendocrine features, likely need some sort of chemotherapy afterwards. We will continue with chest tube per CT surgery. Job ID: [id number]
[2019-02-25] MEDS: Nystatin 500,000 UNITS/5 ML UDCUP SSW SCH ×2 (16:24→20:26)
[2019-02-25] MEDS: Temazepam 15 MG CAP PO PRN (20:26)
[2019-02-25] MEDS: Melatonin 3 MG TAB PO SCH (22:44)
[2019-02-26 04:55] LABS: Band 1 % (5-11); Hemoglobin 7.1 g/dL (14.0-18.0); Hypochromia SLIGHT = 6-15 cells (100X) (0-5/hpf); Lymphocytes 16 % (21-51); MDiff Complete? YES; Mean Corpuscular HGB CONC 31.3 g/dL (32.0-36.0); Mean Corpuscular Hemoglobin 27.1 pg (27.0-31.0); Mean Corpuscular Volume 86.5 fL (78.0-98.0); Mean Platelet Volume 10.5 fL (7.4-10.4); Monocytes 3 % (0-10); Neutrophil 80 % (42-75); Platelet Count 172 thou/uL (130-400); Platelet Morphology Comment Appears Adequate; RBC Distribution Width 16.6 % (11.5-14.5); Red Blood Cell (RBC) Count 2.63 mill/uL (4.70-6.10); White Blood Cell (WBC) Count 3.3 thou/uL (4.8-10.8)
[2019-02-26] MEDS: Acetaminophen 325 MG TAB PO PRN ×3 (07:35→19:54)
[2019-02-26] MEDS: Simvastatin 5 MG TAB PO SCH (07:35)
[2019-02-26] MEDS: Fish Oil 1,000 MG CAP PO SCH (07:35)
[2019-02-26] MEDS: Multivit, Therapeutic 1 TAB PO SCH (07:35)
[2019-02-26] MEDS: Ferrous Sulfate 325 MG TAB PO SCH ×2 (07:35→22:08)
[2019-02-26] MEDS: Nystatin 500,000 UNITS/5 ML UDCUP SSW SCH ×4 (07:36→22:07)
[2019-02-26] MEDS: Amiodarone 200 MG TAB PO SCH (07:36)
--- NOTE | 2019-02-26 08:14 | RAD ---
Portable chest: HISTORY: Follow-up lobectomy COMPARISON: 02/25/2019 FINDINGS:2 right-sided chest tubes are unchanged. Right basilar opacification is unchanged. Small rig ht apical pneumothorax appears unchanged. Left lung remains clear. IMPRESSION:No interval change
[2019-02-26] MEDS: Baclofen 10 MG TAB PO PRN (13:22)
--- NOTE | 2019-02-26 14:27 | PRG ---
DATE OF SERVICE: 02/26/2019 SUBJECTIVE: The patient is about the same. He has chest tube in place on the right. His pathology came back for neuroendocrine tumor with yo involvement. OBJECTIVE: VITAL SIGNS: His temperature 98.2, pulse 84, respirations 18, O2 saturation 97%, and blood pressure 115/59. HEENT: Clear. NECK: No adenopathy or JVD. LUNGS: Slightly diminished breath sounds in right base, left side clear. ABDOMEN: Soft. EXTREMITIES: No edema. LABORATORY DATA: White blood cell count 3.3, hematocrit 22.7, and platelet count 172. ASSESSMENT: 1. Neuroendocrine tumor, probably small cell lung cancer. 2. Chronic obstructive pulmonary disease status post lobectomy. PLAN: In the future, he will need Medical Oncology opinion and probably chemotherapy. For the time being, the goal is to get the chest tube out and get him home. Job ID: [id number]
[2019-02-26] MEDS: Temazepam 15 MG CAP PO PRN (22:08)
[2019-02-26] MEDS: Melatonin 3 MG TAB PO SCH (22:08)
[2019-02-26] MEDS: Bisacodyl 5 MG TAB PO PRN (22:08)
[2019-02-27] MEDS: Acetaminophen 325 MG TAB PO PRN ×3 (05:33→21:47)
[2019-02-27 05:35] LABS: Band 5 % (5-11); Elliptocytes SLIGHT = 2-5 cells (100X) (0-1/hpf); Hemoglobin 7.4 g/dL (14.0-18.0); Lymphocytes 15 % (21-51); MDiff Complete? YES; Mean Corpuscular HGB CONC 30.8 g/dL (32.0-36.0); Mean Corpuscular Volume 84.4 fL (78.0-98.0); Mean Platelet Volume 10.7 fL (7.4-10.4); Monocytes 14 % (0-10); Neutrophil 65 % (42-75); Platelet Count 175 thou/uL (130-400); Platelet Morphology Comment Appears Adequate; RBC Distribution Width 16.7 % (11.5-14.5); Red Blood Cell (RBC) Count 2.86 mill/uL (4.70-6.10); Target Cells SLIGHT = 2-5 cells (100X) (0-1/hpf); White Blood Cell (WBC) Count 3.6 thou/uL (4.8-10.8)
[2019-02-27] MEDS: Multivit, Therapeutic 1 TAB PO SCH (08:41)
[2019-02-27] MEDS: Simvastatin 5 MG TAB PO SCH (08:41)
[2019-02-27] MEDS: Fish Oil 1,000 MG CAP PO SCH (08:41)
[2019-02-27] MEDS: Nystatin 500,000 UNITS/5 ML UDCUP SSW SCH ×4 (08:42→21:47)
[2019-02-27] MEDS: Amiodarone 200 MG TAB PO SCH ×2 (08:42→21:47)
[2019-02-27] MEDS: Ferrous Sulfate 325 MG TAB PO SCH ×2 (08:42→21:48)
--- NOTE | 2019-02-27 08:49 | RAD ---
CHEST 1 VIEW: INDICATION: Lobectomy. COMPARISON: Prior exam dated 02/26/2019. FINDINGS: Right apical pneumothorax is unchanged. Right-sided thoracostomy tubes and right-sided pleural paren chymal opacity are stable. Left lung remains clear. Mild cardiomegaly is stable. Osseous structure s are unchanged. IMPRESSION: Stable exam. POS: [facility]
[2019-02-27] MEDS: Baclofen 10 MG TAB PO PRN (13:00)
--- NOTE | 2019-02-27 13:22 | PRG ---
DATE OF SERVICE: 02/27/2019 SUBJECTIVE: He is sitting up in a chair and has no acute complaints. OBJECTIVE: VITAL SIGNS: Temperature is 99.4, pulse 89, respirations 16, O2 saturation 93% on room air, blood pressure 123/70. HEENT: Unremarkable. NECK: No adenopathy or JVD. LUNGS: Fairly diminished breath sounds in the right base compared to left. CARDIAC: S1, S2. Regular. ABDOMEN: Soft. EXTREMITIES: No edema. LABORATORY DATA: White blood cell count 3.6, hematocrit 24.1, and platelet count 175. ASSESSMENT: 1. Neuroendocrine cancer-likely small cell. 2. Chronic obstructive pulmonary disease. 3. Status post lobectomy. PLAN: Hopefully chest tube out soon. He will need oncologic referral as an outpatient. Job ID: [id number]
[2019-02-27] MEDS: Temazepam 15 MG CAP PO PRN (21:47)
[2019-02-27] MEDS: Melatonin 3 MG TAB PO SCH (21:48)
[2019-02-28 04:14] LABS: Band 1 % (5-11); Elliptocytes SLIGHT = 2-5 cells (100X) (0-1/hpf); Eosinophils 1 % (0-10); Hemoglobin 6.9 g/dL (14.0-18.0); Lymphocytes 35 % (21-51); MDiff Complete? YES; Mean Corpuscular HGB CONC 31.5 g/dL (32.0-36.0); Mean Corpuscular Hemoglobin 26.7 pg (27.0-31.0); Mean Corpuscular Volume 84.6 fL (78.0-98.0); Mean Platelet Volume 10.6 fL (7.4-10.4); Monocytes 10 % (0-10); Neutrophil 48 % (42-75); Platelet Count 159 thou/uL (130-400); Platelet Morphology Comment Appears Adequate; RBC Distribution Width 16.8 % (11.5-14.5); Reactive Lymphocytes 4 % (0-10); Red Blood Cell (RBC) Count 2.59 mill/uL (4.70-6.10); White Blood Cell (WBC) Count 4.3 thou/uL (4.8-10.8)
[2019-02-28] MEDS: Nystatin 500,000 UNITS/5 ML UDCUP SSW SCH ×4 (08:55→21:31)
[2019-02-28] MEDS: Fish Oil 1,000 MG CAP PO SCH (08:55)
[2019-02-28] MEDS: Ferrous Sulfate 325 MG TAB PO SCH ×2 (08:55→21:31)
[2019-02-28] MEDS: Amiodarone 200 MG TAB PO SCH ×2 (08:55→21:30)
[2019-02-28] MEDS: Simvastatin 5 MG TAB PO SCH (08:55)
[2019-02-28] MEDS: Multivit, Therapeutic 1 TAB PO SCH (08:55)
[2019-02-28] MEDS: Acetaminophen 325 MG TAB PO PRN ×2 (08:57→21:32)
--- NOTE | 2019-02-28 09:52 | RAD ---
PORTABLE CHEST: HISTORY: Chest tube removal. COMPARISON: 02/27/2019. FINDINGS: The 2 right-sided chest tubes have been removed. There continues to be opacification of the right stalin ng base consistent with diffusion and basilar atelectasis/consolidation. There is evidence of a small apical pneumothorax which is stable. The left lung remains clear. IMPRESSION: No significant interval change. Small right apical pneumothorax again noted and opacification of the right lung base is unchanged. POS: [facility]
--- NOTE | 2019-02-28 14:16 | PRG ---
DATE OF SERVICE: 02/28/2019 SUBJECTIVE: Mr. Henderson is weak. He got his chest tube pulled out. He tells me he is getting a blood transfusion today. OBJECTIVE: VITAL SIGNS: His temperature is 98.9, pulse 85, respirations 16, O2 saturation 94% on room air, blood pressure 109/62. HEENT: Unremarkable. NECK: No adenopathy or JVD. LUNGS: Somewhat diminished breath sounds on the right compared to left. CARDIAC: S1, S2. Regular. ABDOMEN: Soft. EXTREMITIES: No edema. LABORATORY DATA: White blood cell count 4.3, hematocrit 21.9, and platelet count 159. Sodium 135, potassium 4.4, chloride 103, CO2 of 27, BUN 12, creatinine 0.8 glucose 110. ASSESSMENT: 1. Anemia. 2. Status post lobectomy. 3. Neuroendocrine cancer, likely small cell. PLAN: Rehabilitation. Eventual Oncologic referral. Job ID: [id number]
[2019-02-28] MEDS: Melatonin 3 MG TAB PO SCH (21:31)
[2019-02-28] MEDS: Temazepam 15 MG CAP PO PRN (21:32)
[2019-02-28] MEDS: Bisacodyl 5 MG TAB PO PRN (21:36)
[2019-03-01] MEDS: Acetaminophen 325 MG TAB PO PRN ×2 (02:48→20:21)
[2019-03-01 07:46] LABS: ALT (SGPT) 243 U/L (8-55); AST (SGOT) 142 U/L (5-34); Albumin 2.3 g/dL (3.4-4.8); Alkaline Phosphatase 577 U/L (40-110); Anion Gap 10 mmol/L (10-20); BUN (Urea Nitrogen) 14 mg/dL (8.4-25.7); Bilirubin, Total 0.9 mg/dL (0.2-1.2); Calc. Creatinine Clearance 85 mL/min (70-130); Calcium 8.3 mg/dL (7.8-10.44); Carbon Dioxide 32 mmol/L (23-31); Chloride 99 mmol/L (98-107); Estimated GFR-MDRD Greater than 90; Globulin 3.1 g/dL (2.4-3.5); Glucose 129 mg/dL (80-115); Potassium 3.6 mmol/L (3.5-5.1); Protein, Total 5.4 g/dL (5.8-8.1); Sodium 137 mmol/L (136-145)
--- NOTE | 2019-03-01 08:33 | RAD ---
Chest one view HISTORY: Follow-up. Lobectomy. COMPARISON: 02/28/2019. FINDINGS: Opacity throughout the inferior lateral aspect of the right hemithorax is again demonstrate d with pleural fluid. Consistent with prior right lower lobe lobectomy. Hyperinflation of the right upper lobe. Pulmonary vasculature upper limits of normal. Mediastinum slightly shifted rightward. Small pneumothorax at the right apex is stable. Left lung well-inflated without pleural fluid or pneumothorax evident. plastic boat buffer leads overlie the chest. IMPRESSION: Stable postoperative appearance of the chest. Small right apical pneumothorax is stable.
[2019-03-01 08:58] LABS: Hemoglobin 8.5 g/dL (14.0-18.0); Mean Corpuscular Hemoglobin 27.4 pg (27.0-31.0); Mean Corpuscular Volume 85.6 fL (78.0-98.0); Mean Platelet Volume 10.9 fL (7.4-10.4); Platelet Count 145 thou/uL (130-400); RBC Distribution Width 16.1 % (11.5-14.5); White Blood Cell (WBC) Count 4.9 thou/uL (4.8-10.8)
[2019-03-01] MEDS: Ferrous Sulfate 325 MG TAB PO SCH ×2 (08:58→20:21)
[2019-03-01] MEDS: Amiodarone 200 MG TAB PO SCH ×2 (08:58→20:21)
[2019-03-01] MEDS: Nystatin 500,000 UNITS/5 ML UDCUP SSW SCH ×4 (08:58→20:20)
[2019-03-01] MEDS: Multivit, Therapeutic 1 TAB PO SCH (08:58)
[2019-03-01] MEDS: Simvastatin 5 MG TAB PO SCH (08:58)
[2019-03-01] MEDS: Fish Oil 1,000 MG CAP PO SCH (08:58)
--- NOTE | 2019-03-01 10:26 | PRG ---
DATE OF SERVICE: 03/01/2019 SUBJECTIVE: The patient is doing reasonably well, has no new complaints. OBJECTIVE: VITAL SIGNS: Temperature 98.7, pulse 86, respirations 18, O2 saturation 97% on room air, and blood pressure 119/62. HEENT: Unremarkable. NECK: No adenopathy or JVD. CHEST: Clear anteriorly bilaterally. CARDIAC: S1, S2. Regular. ABDOMEN: Soft. EXTREMITIES: No edema. IMAGING DATA: Chest x-ray shows some rotation to the right. There is apical space on the right. ASSESSMENT: 1. Status post lobectomy. 2. Neuroendocrine tumor. PLAN: Basically needs to be reconditioned. After that, see Oncology for possible chemotherapy. Job ID: [id number]
[2019-03-01 11:50] LABS: Band 1 % (5-11); Differential Comment Immature Cell(s); Hypochromia SLIGHT = 6-15 cells (100X) (0-5/hpf); Lymphocytes 20 % (21-51); MDiff Complete? YES; Monocytes 5 % (0-10); Myelocyte 1 % (0-0); Neutrophil 69 % (42-75); Platelet Morphology Comment Appears Adequate; Polychromasia SLIGHT = 2-3 cells (100X) (0-2/hpf); Reactive Lymphocytes 1 % (0-10); Reflex for Review?? YES
[2019-03-01] MEDS: Baclofen 10 MG TAB PO PRN (16:27)
[2019-03-01] MEDS: Melatonin 3 MG TAB PO SCH (20:20)
[2019-03-01] MEDS: Temazepam 15 MG CAP PO PRN (23:17)
[2019-03-02 05:21] LABS: Hemoglobin 8.9 g/dL (14.0-18.0); Hypochromia SLIGHT = 6-15 cells (100X) (0-5/hpf); Lymphocytes 18 % (21-51); MDiff Complete? YES; Mean Corpuscular HGB CONC 31.7 g/dL (32.0-36.0); Mean Corpuscular Hemoglobin 26.8 pg (27.0-31.0); Mean Corpuscular Volume 84.8 fL (78.0-98.0); Mean Platelet Volume 11.1 fL (7.4-10.4); Monocytes 9 % (0-10); Neutrophil 73 % (42-75); Platelet Count 155 thou/uL (130-400); Platelet Morphology Comment Appears Adequate; RBC Distribution Width 16.5 % (11.5-14.5); Red Blood Cell (RBC) Count 3.33 mill/uL (4.70-6.10); White Blood Cell (WBC) Count 5.2 thou/uL (4.8-10.8)
[2019-03-02] MEDS ORDERED: HYDROcodone/Acetaminophen 5/325 mg Tablet PO PRN (07:17)
[2019-03-02] MEDS: Nystatin 500,000 UNITS/5 ML UDCUP SSW SCH ×4 (09:08→20:54)
[2019-03-02] MEDS: Acetaminophen 325 MG TAB PO PRN (09:09)
[2019-03-02] MEDS: Multivit, Therapeutic 1 TAB PO SCH (09:09)
[2019-03-02] MEDS: Fish Oil 1,000 MG CAP PO SCH (09:09)
[2019-03-02] MEDS: Amiodarone 200 MG TAB PO SCH ×2 (09:09→20:54)
[2019-03-02] MEDS: Ferrous Sulfate 325 MG TAB PO SCH ×2 (09:09→20:54)
[2019-03-02] MEDS: Simvastatin 5 MG TAB PO SCH (09:09)
[2019-03-02] MEDS ORDERED: Ibuprofen 600 MG TAB PO PRN (11:55)
[2019-03-02] MEDS ORDERED: traMADol HCl 50 MG TAB PO PRN ×2 (11:59)
--- NOTE | 2019-03-02 13:39 | PRG ---
DATE OF SERVICE: 03/02/2019 SUBJECTIVE: Efren Henderson is doing well. His chest tubes are out. He is awaiting placement in rehab. OBJECTIVE: VITAL SIGNS: He is afebrile. Heart rate is 84, respiratory rate is 18, oximetry is 97% on room air, blood pressure 108/64. LUNGS: Clear. IMPRESSION: Status post lobectomy for an undifferentiated carcinoma with neuroendocrine features. He does not have an appointment at [facility] until the end of February. I will discuss with local oncologist to see if they would recommend earlier rather than later chemotherapy given the cell type. Job ID: [id number]
[2019-03-02] MEDS: Melatonin 3 MG TAB PO SCH (20:54)
[2019-03-02] MEDS: Temazepam 15 MG CAP PO PRN (21:53)
[2019-03-03] MEDS: Nystatin 500,000 UNITS/5 ML UDCUP SSW SCH ×4 (13:33→21:00)
[2019-03-03] MEDS: Fish Oil 1,000 MG CAP PO SCH (16:08)
[2019-03-03] MEDS: Multivit, Therapeutic 1 TAB PO SCH (16:08)
[2019-03-03] MEDS: Simvastatin 5 MG TAB PO SCH (16:08)
[2019-03-03] MEDS: Amiodarone 200 MG TAB PO SCH ×2 (16:08→20:59)
[2019-03-03] MEDS: Ferrous Sulfate 325 MG TAB PO SCH ×2 (16:08→20:59)
[2019-03-03 19:44] LABS: Hemoglobin 8.7 g/dL (14.0-18.0); MDiff Complete? YES; Mean Corpuscular HGB CONC 31.3 g/dL (32.0-36.0); Mean Corpuscular Hemoglobin 26.7 pg (27.0-31.0); Mean Corpuscular Volume 85.4 fL (78.0-98.0); Mean Platelet Volume 11.2 fL (7.4-10.4); Neutrophil 71 % (42-75); Platelet Count 152 thou/uL (130-400); RBC Distribution Width 16.4 % (11.5-14.5); Red Blood Cell (RBC) Count 3.26 mill/uL (4.70-6.10); White Blood Cell (WBC) Count 3.7 thou/uL (4.8-10.8)
[2019-03-03 19:45] LABS: Band 2 % (5-11); Differential Comment Blast-Like Cell(s); Eosinophils 1 % (0-10); Lymphocytes 20 % (21-51); Metamyelocyte 1 % (0-0); Monocytes 2 % (0-10); Myelocyte 1 % (0-0)
[2019-03-03 19:46] LABS: Hypochromia SLIGHT = 6-15 cells (100X) (0-5/hpf); Polychromasia SLIGHT = 2-3 cells (100X) (0-2/hpf)
[2019-03-03] MEDS: Bisacodyl 5 MG TAB PO PRN (20:59)
[2019-03-03] MEDS: Melatonin 3 MG TAB PO SCH (20:59)
[2019-03-03] MEDS: Temazepam 15 MG CAP PO PRN (20:59)
[2019-03-03] MEDS: Baclofen 10 MG TAB PO PRN (22:26)
[2019-03-04 04:46] VITALS: BMI 21.1
[2019-03-04 05:18] LABS: Band 5 % (5-11); Differential Comment Blast-Like Cell(s); Hemoglobin 8.7 g/dL (14.0-18.0); Hypochromia SLIGHT = 6-15 cells (100X) (0-5/hpf); Lymphocytes 17 % (21-51); MDiff Complete? YES; Mean Corpuscular HGB CONC 31.3 g/dL (32.0-36.0); Mean Corpuscular Hemoglobin 26.7 pg (27.0-31.0); Mean Corpuscular Volume 85.5 fL (78.0-98.0); Mean Platelet Volume 11.2 fL (7.4-10.4); Monocytes 3 % (0-10); Neutrophil 67 % (42-75); Platelet Count 150 thou/uL (130-400); Platelet Morphology Comment Appears Adequate; Polychromasia SLIGHT = 2-3 cells (100X) (0-2/hpf); RBC Distribution Width 16.8 % (11.5-14.5); Reactive Lymphocytes 3 % (0-10); Red Blood Cell (RBC) Count 3.24 mill/uL (4.70-6.10); Rouleaux Formation SLIGHT = 1-5 cells (100X) (None Seen); White Blood Cell (WBC) Count 3.6 thou/uL (4.8-10.8)
--- NOTE | 2019-03-04 07:55 | RAD ---
Chest 2 views HISTORY: Lobectomy. Follow-up. COMPARISON: 03/01/2019. FINDINGS: Right cardiac margin remains partially obscured by atelectasis of the remaining right lung. Fluid and some small pockets of loculated gas along the lower right lateral pleural space is stable. There is slight rightward shift of the mediastinum abdomen. Air is now present within the ple ural space at the right apex, with the fluid draining to the dependent portion of the chest when patient is upright. Mild compensatory hyperinflation of the left lung. IMPRESSION: Stable postoperative appearance of the chest with residual right hydropneumothorax and hy perinflation of the left lung.
--- NOTE | 2019-03-04 08:06 | PRG ---
DATE OF SERVICE: 03/03/2019 SUBJECTIVE: Efren Henderson did not qualify for inpatient rehab because he is doing too well walking around. OBJECTIVE: VITAL SIGNS: He is afebrile. Heart rate is 98, respiratory rate 18, sats 97% on room air, blood pressure 135/63. LUNGS/HEART/ABDOMEN: Unchanged. reasonable for him to go to outpatient rehab and stay in town with his brother. will follow. Job ID: [id number]
[2019-03-04] MEDS: Simvastatin 5 MG TAB PO SCH (08:42)
[2019-03-04] MEDS: Multivit, Therapeutic 1 TAB PO SCH (08:42)
[2019-03-04] MEDS: Fish Oil 1,000 MG CAP PO SCH (08:42)
[2019-03-04] MEDS: Amiodarone 200 MG TAB PO SCH (08:42)
[2019-03-04] MEDS: Nystatin 500,000 UNITS/5 ML UDCUP SSW SCH (08:42)
[2019-03-04] MEDS: Ferrous Sulfate 325 MG TAB PO SCH (08:43)
[2019-03-04 13:14] VITALS: BP 132/66; TEMP 99.5
--- NOTE | 2019-03-05 05:23 | DIS ---
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 PROCEDURES PERFORMED: Fiberoptic bronchoscopy, muscle sparing, right thoracotomy and evacuation of hemothorax, excisional biopsy right lower lobe mass followed by right lower lobectomy, and mediastinal lymph node dissection 02/18/2019. HISTORY OF PRESENT ILLNESS AND HOSPITAL COURSE: The patient is a 68-year-old man with a long history of smoking. He underwent a screening CT scan, which demonstrated a right lower lobe mass, percutaneous biopsy that was complicated by intraparenchymal and intrapleural hemorrhage. His hemothorax was evacuated by chest tube thoracostomy, but recurred after removal of the tube and his biopsy was nondiagnostic because of shortness of breath associated with clotted hemothorax and an inability to evacuate it percutaneously. It was opted to proceed with thoracotomy. His hemothorax was evacuated. Excisional biopsy of his mass by frozen section consistent with a non-small cell carcinoma. He underwent right lower lobectomy and mediastinal lymph node dissection, although none of the nodes encountered at the N1 level were grossly suspicious for malignancy. Nodes removed from the subcarinal space were grossly suspicious and pathologically were confirmed to be malignant as were the nodes at the azygos region. The pathologic report on the resected specimen called the cell type of small cell carcinoma with neuroendocrine features. The patient had incomplete re-expansion of the lung, both at the apex and at the base. Even though the hilar reflections of the pleura and inferior pulmonary ligament were completely lysed and there was no entrapping rind on the remaining two lobes. Postoperatively, he began running fever with no clear source. He was started on Levaquin when he ran a temperature of 102. His fevers improved and did not completely defervesce, still occasionally having temperatures as high as 101. His chest x-ray began to manifest basilar infiltrate, as well as some retained fluid filling the space left by the incompletely re-expanded lung. The patient required additional transfusions for blood loss anemia as he was already anemic going into the operation. His exercise tolerance was diminished and he enquired about the appropriateness of the inpatient rehabilitation that was looked into, but rehab deemed he was inappropriate as he was too highly functioning and sewn out at the time of discharge. His rehab is going to be coordinated through outpatient rehab while he stays with local family. I will plan on seeing him in the office in about a week or two with another chest x-ray and repeat labs that include a CBC and complete metabolic profile as the patient in addition to his anemia had some elevation of his LFTs postoperatively. His discharge medicines include another two weeks of Levaquin and six weeks of amiodarone 200 mg p.o. b.i.d. Perioperatively, he had atrial fibrillation. He is being given a prescription for Motrin and Vicodin for pain, and arrangements are being made for an evaluation with Medical Oncology at [facility]. Job ID: [id number]
== END 2019-03-04 14:45 | disposition home or self-care (01) | DRG 164 ==
LOC: SURG A 02-18 05:57 → CCU 02-18 18:22 → 2NO 02-19 14:48
PROVIDERS: ADMIT Thoracic Surgery (Cardiothoracic Vascular Surgery); ATTEND Thoracic Surgery (Cardiothoracic Vascular Surgery)
PROC: 0BBF0ZX Excision of Right Lower Lung Lobe, Open Approach, Diagnostic (ICD-10-PCS; principal; 2019-02-18)
PROC: 07B70ZZ Excision of Thorax Lymphatic, Open Approach (ICD-10-PCS; 2019-02-18)
PROC: 0BBF0ZZ Excision of Right Lower Lung Lobe, Open Approach (ICD-10-PCS; 2019-02-18)
PROC: 0BJ08ZZ Inspection of Tracheobronchial Tree, Via Natural or Artificial Opening Endoscopic (ICD-10-PCS; 2019-02-18)
PROC: 0WC90ZZ Extirpation of Matter from Right Pleural Cavity, Open Approach (ICD-10-PCS; 2019-02-18)
PROC: 30233N1 Transfusion of Nonautologous Red Blood Cells into Peripheral Vein, Percutaneous Approach (ICD-10-PCS; 2019-02-28)
DX: C34.31 Malignant neoplasm of lower lobe, right bronchus or lung (principal); J94.2 Hemothorax; D62 Acute posthemorrhagic anemia; C77.1 Secondary and unspecified malignant neoplasm of intrathoracic lymph nodes; F17.210 Nicotine dependence, cigarettes, uncomplicated; J40 Bronchitis, not specified as acute or chronic; J44.9 Chronic obstructive pulmonary disease, unspecified; Z79.899 Other long term (current) drug therapy
CPT/HCPCS: 36415; 36416; 36430; 71045; 71046; 80048; 80053; 80076; 81001; 82274; 83735; 84443; 85007; 85025; 85027; 85060; 86850; 86900; 86901; 87070; 87077; 87086; 87186; 87205; 88305; 88307; 88309; 88313; 88331; 88341; 88342; 89220; 93005; 93010; 94640; A4306; J0131; J0282; J1100; J1642; J1885; J2001; J2250; J2405; J2704; J2795; J3010; J7070; P9016; P9045

== ENCOUNTER 2019-02-16 14:25 | Outpatient (CLI) | payer MEDICARE, OTHER ==
--- NOTE | 2019-02-16 16:22 | RAD ---
PA AND LATERAL VIEWS OF THE CHEST: 02/15/19 HISTORY: Preoperative evaluation. FINDINGS: Comparison made with exam of 02/11/19. Moderate sized right pleural effusion with adjacent opacity is stable. The heart size is normal. The left lung is clear. No pneumothoraces are seen. IMPRESSION: Stable exam. POS: OFF
== END 2019-02-16 14:26 | disposition home or self-care (01) ==
LOC: LABBT 14:25
PROVIDERS: ATTEND Thoracic Surgery (Cardiothoracic Vascular Surgery)
DX: Z01.818 Encounter for other preprocedural examination (principal); J94.2 Hemothorax; R91.8 Other nonspecific abnormal finding of lung field
CPT/HCPCS: 71046; 93005; 93010

== ENCOUNTER 2019-03-09 13:28 | Outpatient (CLI) | payer MEDICARE, OTHER ==
--- NOTE | 2019-03-09 14:00 | RAD ---
CHEST TWO VIEWS: COMPARISON: 03/04/2019 FINDINGS: Essentially stable opacification of the right hemithorax with rightward deviation of the cardiomedias tinal silhouette. Compensatory hyperinflation of the left lung. No pneumothorax. Stable right apical hydropneumothorax. IMPRESSION: 1. Persistent opacification of the right lung with rightward deviation of the cardiomediastinal silho uette. 2. Right sided hydropneumothorax. The results of the study were discussed with Dr. Clinton on 03/09/2019 at 4:00 p.m. CODE CR Transcribed Date/Time: 03/09/2019 2:22 PM
== END 2019-03-09 13:29 | disposition home or self-care (01) ==
LOC: RAD 13:28
PROVIDERS: ATTEND Internal Medicine Critical Care Medicine
DX: R06.00 Dyspnea, unspecified (principal); J98.4 Other disorders of lung; J98.59 Other diseases of mediastinum, not elsewhere classified
CPT/HCPCS: 71046

== ENCOUNTER 2019-03-25 10:31 | Outpatient (CLI) | payer MEDICARE, OTHER ==
--- NOTE | 2019-03-25 10:53 | RAD ---
EXAM: Chest PA and lateral: HISTORY: Dyspnea COMPARISON: 03/09/2019 FINDINGS: Right-sided effusion and right lower lung atelectasis and infiltrate again noted. Small right apical pneumothorax again noted with possible tiny right hydropneumothorax in the apex, smaller than on prior study. Left lung remains clear and unchanged. Osseous structures are unremarkable. IMPRESSION: Right lung effusion and right lower lung infiltrate and atelectasis with small right apical hydropneu mothorax again noted.
== END 2019-03-25 10:32 | disposition home or self-care (01) ==
LOC: RAD 10:31
PROVIDERS: ATTEND Internal Medicine Critical Care Medicine
DX: R06.00 Dyspnea, unspecified (principal); R91.8 Other nonspecific abnormal finding of lung field; J90 Pleural effusion, not elsewhere classified; J94.8 Other specified pleural conditions; J98.11 Atelectasis
CPT/HCPCS: 36415; 71046; 85007; 85027